=== PATIENT | male | born 1945 | race Caucasian/White ===

== ENCOUNTER → 2018-11-15 | Outpatient (CLI) | payer BC ==
[~2018-11-15] MED LIST: IOHEXOL 300 MG/ML 75 ML VIAL. IV ONE
[2018-11-15 10:39] LABS: CREATININE 1.1 mg/dL (0.7-1.3); GFR 65.8
--- NOTE | 2018-11-15 11:23 | RAD ---
PQRS Compliance Statement: One or more of the following individualized dose reduction techniques were utilized for this examination: 1. Automated exposure control 2. Adjustment of the mA and/or kV according to patient size 3. Use of iterative reconstruction technique CT chest with contrast November 15, 2018 INDICATION: Shortness of breath, cough and congestion. COMPARISON: None available TECHNIQUE: Multiple axial CT images of the chest were obtained after the intravenous demonstration of 75 cc Omnipaque 300. Coronal and sagittal reformats are provided. FINDINGS: There is a left thyroid nodule measuring 2.4 x 2.0 cm. There are no pathologically enlarged lymph nodes in the axilla, mediastinum or hilar regions. Heart size is within normal limits. There is no pericardial effusion. Thoracic aorta is normal in course and caliber. Coronary artery vascular calcifications are identified. Opacified portions of the pulmonary arteries appear patent. There is a 3 mm solid noncalcified pleura nodule in the right middle lobe (series 4, image 64). There is a 4 mm groundglass nodule in the left upper lobe (series 4, image 18). There are no pleural effusions. No pulmonary vascular congestion or pneumothorax. Lungs are clear. No suspicious hepatic lesion. Spleen is nonenlarged. Adrenal glands are normal in appearance. Pancreas is normal in appearance. No suspicious osseous abnormality. IMPRESSION: 1. No focal airspace consolidation. 2. Solid noncalcified pulmonary nodule measuring up to 3 mm in the right middle lobe. An optional one-year follow-up chest CT may be of benefit. There is a 4 mm groundglass nodule in the left upper lobe which may be infectious/inflammatory. 3. Left thyroid nodule measures 2.4 x 2.0 cm. Further evaluation with thyroid ultrasound is recommended. Electronically signed by: Elissa Perez MD (11/15/2018 11:20 AM) [id number]
== END | disposition home or self-care (01) ==
LOC: CT 09:49
PROVIDERS: ATTEND Nurse Practitioner Family
DX: E04.1 Nontoxic single thyroid nodule (principal); I25.10 Atherosclerotic heart disease of native coronary artery without angina pectoris; R91.1 Solitary pulmonary nodule
CPT/HCPCS: 36415; 71260; 82565; 84520; Q9967

== ENCOUNTER → 2018-11-25 | Outpatient (CLI) | payer BC ==
--- NOTE | 2018-11-25 15:36 | RAD ---
THYROID ULTRASOUND History: Thyroid nodule seen on CT Comparison: Chest CT November 15, 2018 Findings: Multiple sonographic images of the thyroid gland are submitted. Right lobe measured 5.1 x 2.2 x 1.2 cm. Left lobe measured 4.4 x 3.1 x 3 cm. Isthmus measured 0.3 cm in thickness. No discrete right thyroid nodularity is demonstrated. There is large, heterogeneous, solid-appearing mass of the left thyroid gland about 4.1 x 3 x 2.7 cm in size occupying most of the left thyroid lobe. There is internal vascularity on color Doppler imaging. Impression: 1. There is a large heterogeneous solid mass of the left thyroid gland. Fine-needle aspiration should be considered given size and asymmetry with the right. Electronically signed by: Arturo Morocho MD (11/25/2018 3:33 PM) [place] [id number]
== END | disposition home or self-care (01) ==
LOC: US 14:35
PROVIDERS: ATTEND Nurse Practitioner Family
DX: E04.1 Nontoxic single thyroid nodule (principal)
CPT/HCPCS: 76536

== ENCOUNTER 2019-05-26 22:04 | Emergency (ER) | payer MEDICARE, BC ==
[~2019-05-26] VITALS: Ht 180.3 cm; Wt 91.2 kg
[2019-05-26] MEDS ORDERED: DIPHTH,PERTUSS(ACELL),TET TOX 0.5 ML DISP.SYRIN. VAX IM ONE (23:45)
--- NOTE | 2019-05-26 23:57 | RAD ---
STUDY: CT head and cervical spine without contrast INDICATION: Fall. Laceration. COMPARISON: None available. TECHNIQUE: Axial CT imaging through the head and cervical spine without the use of intravenous contrast. Sagittal and coronal reformats were obtained. One or more of the following individualized dose reduction techniques were utilized for this examination: 1. Automated exposure control 2. Adjustment of the mA and/or kV according to patient size 3. Use of iterative reconstruction technique. FINDINGS: CT head: No acute intracranial hemorrhage is identified. Mild increased density along the left slightly more so than right tentorial leaflets is favored in part related to dural mineralization given similar increased density along the falx. Additionally, no large scalp hematoma or other sequela of trauma seen throughout the head. Ramon-white matter differentiation is maintained. No mass effect, midline shift or hydrocephalus. Parenchymal volume loss intracranial atherosclerotic calcifications. White matter findings as can be seen with chronic microvascular ischemic change. The paranasal sinuses and mastoid air cells are well aerated. CT cervical spine: No acute fracture seen throughout the cervical or upper thoracic spine. No traumatic malalignment. Mild reversal of cervical lordosis centered at C4. Multilevel discogenic arthrosis with disc space narrowing most notable from C3-C4 through C6-C7. Multiple levels with disc osteophyte complex formation, uncovertebral joint hypertrophy as well as facet degeneration. Bony neural foraminal encroachment from C3-C4 through C6-C7 mostly relatively moderate in severity but more severe on the right particularly at C6-C7 more so than C5-C6. Suspected mild central canal stenosis at a few levels though not well evaluated by technique. No prevertebral hematoma. Relatively mild carotid bulb atherosclerotic calcifications. Status post left hemithyroidectomy. No apical pneumothorax. IMPRESSION: CT head: 1. No acute intracranial abnormality is identified. Thin increased density along the left slightly more so than right tentorial leaflets is favored in part related to mineralization given similar increased density along the falx. No calvarial fracture or large scalp hematoma. 2. Senescent changes of the brain and white matter findings as can be seen in the setting of chronic microvascular ischemic change. CT cervical spine: 1. No acute fracture or traumatic malalignment. 2. Multifactorial degenerative changes, as above, resulting in multilevel bony neural foraminal encroachment as well as suspected mild central canal encroachment at a few levels. Electronically signed by: NARAYAN ROMAN MD (05/26/2019 11:54 PM) [id number]
[2019-05-27] MEDS ORDERED: HYDR-3165 PO (00:07)
--- NOTE | 2019-05-27 00:07 | PHYS DOC ---
Past History Past Medical History: Dementia, GERD, High Cholesterol, [place], Other Past Surgical History: Other Additional Past Surgical Histo: partial thyroidectomy, cardiac stents in LAD, Additional Smoking Information: quit in 1991 Alcohol Use: Occasionally Additional Alcohol Information: drinks glass of wine daily Drug Use: None Adult General Chief Complaint Chief Complaint: MECHANICAL FALL HPI HPI 73-year-old male presents after fall and head trauma. Patient was trying to throw a trash bag into a dumpster when he slipped off of the elevated position that it was in. He believes he fell 5 feet. He hit the back of his head on concrete. Patient denies loss of consciousness. He had bleeding that he had a laceration to the scalp. He has had no vomiting. He currently has a headache and generalized neck stiffness and pain. He denies numbness or tingling in his extremities. His not on a blood thinner. Denies any other injuries. Review of Systems Review of Systems Constitutional: Denies fever or chills [] Eyes: Denies change in visual acuity, redness, or eye pain [] HENT: Head trauma. Denies nasal congestion or sore throat [] Respiratory: Denies cough or shortness of breath [] Cardiovascular: No additional information not addressed in HPI [] GI: Denies abdominal pain, nausea, vomiting, bloody stools or diarrhea [] : Denies dysuria or hematuria [] Musculoskeletal: Neck pain[] Integument: Denies rash or skin lesions [] Neurologic: Denies headache, focal weakness or sensory changes [] Endocrine: Denies polyuria or polydipsia [] All other systems were reviewed and found to be within normal limits, except as documented in this note. Current Medications Current Medications Current Medications Medications (Trade) Dose Ordered Sig/Chasidy Start Time Stop Time Status Last Admin Dose Admin Diphtheria/ Tetanus/Acell Pertussis (Boostrix) 0.5 ml ONCE ONCE 05/26/19 23:45 05/26/19 23:46 DC 05/26/19 23:47 0.5 ML Allergies Allergies Allergies Coded Allergies Type Severity Reaction Last Updated Verified No Known Drug Allergies 11/15/18 No Physical Exam Physical Exam Constitutional: Well developed, well nourished, no acute distress, non-toxic appearance. [] HENT: Normocephalic, atraumatic, bilateral external ears normal, oropharynx moist, no oral exudates, nose normal. [] Eyes: PERRLA, EOMI, conjunctiva normal, no discharge. [] Neck: Normal range of motion, no tenderness, supple, no stridor. [] Cardiovascular:Heart rate regular rhythm, no murmur [] Lungs & Thorax: Bilateral breath sounds clear to auscultation [] Abdomen: Bowel sounds normal, soft, no tenderness, no masses, no pulsatile masses. [] Skin: Skin tear of the os simple scalp. Not currently bleeding[] Back: No tenderness, no CVA tenderness. [] Extremities: No tenderness, no cyanosis, no clubbing, ROM intact, no edema. [] Neurologic: Alert and oriented X 3, normal motor function, normal sensory function, no focal deficits noted. [] Psychologic: Affect normal, judgement normal, mood normal. [] Current Patient Data Vital Signs Vital Signs Date Time Temp Pulse Resp B/P (MAP) Pulse Ox O2 Delivery O2 Flow Rate FiO2 05/26/19 22:04 98.1 75 16 97 Room Air EKG EKG [] Radiology/Procedures Radiology/Procedures [] Impressions: Exam: Right ankle 3 views. Right foot 3 views INDICATION: Fall, pain TECHNIQUE: Frontal, lateral and oblique views of the right foot and right ankle. Comparisons: None FINDINGS: Foot: Bone mineralization is normal. No acute or healed fractures. Soft tissues are unremarkable. Joint spaces are well-maintained. Ankle: Bone mineralization is normal. No acute or healed fractures. Soft tissues are unremarkable. Joint spaces are well-maintained. IMPRESSION: 1. No acute osseous abnormality of the right foot. 2. No acute osseous abnormality of the right ankle. Electronically signed by: Kareen Lozano MD (05/26/2019 11:02 PM) [employer] DICTATED AND SIGNED BY: KAREEN LOZANO MD DATE: 05/26/19 2332 CC: KE RICE DO; CURTIS PATEL DO ~ Course & Med Decision Making Course & Med Decision Making Pertinent Labs and Imaging studies reviewed. (See chart for details) The patient's CT of the head and neck is negative for acute findings. See official report for more details. The patient's head wound appears to be superficial and well approximated at this time. It is no longer bleeding. We'll place a clean dressing over it. It does not require sutures or kimi. The patient is stable for discharge at this time. [] Dragon Disclaimer Dragon Disclaimer This electronic medical record was generated, in whole or in part, using a voice recognition dictation system. Departure Departure: Impression: Primary Impression: Fall (on) (from) unspecified stairs and steps, initial encounter Additional Impression: Skin tear Disposition: HOME, SELF-CARE Condition: STABLE Referrals: LIZZETTE COX MD (PCP) Patient Instructions: Head Injury, Adult, Lych-xn-Vncc Scripts Hydrocodone Bit/Acetaminophen (NORCO 5-325 TABLET) 1 Each Tablet 1 TAB PO PRN Q6HRS PRN for PAIN, #10 TAB 0 Refills Prov: KE RICE DO 05/27/19 Problem Qualifiers KE RICE DO May 27, 2019 00:07
[2019-05-27] MEDS ORDERED: HYDROcodone/APAP 5/325MG 1 TAB TABLET PO ONE (00:30)
[2019-05-27 00:35] VITALS: BP 158/82
== END 2019-05-27 00:45 | disposition home or self-care (01) ==
LOC: ER 22:04
DX: S01.01XA Laceration without foreign body of scalp, initial encounter (principal); R51 Headache; K21.9 Gastro-esophageal reflux disease without esophagitis; F03.90 Unspecified dementia, unspecified severity, without behavioral disturbance, psychotic disturbance, mood disturbance, and anxiety; E78.00 Pure hypercholesterolemia, unspecified; I25.2 Old myocardial infarction; Z87.891 Personal history of nicotine dependence; W10.8XXA Fall (on) (from) other stairs and steps, initial encounter; Y93.89 Activity, other specified; Y92.89 Other specified places as the place of occurrence of the external cause; Y99.8 Other external cause status
CPT/HCPCS: 70450; 72125; 90471; 90715; 99284-25

== ENCOUNTER 2020-12-12 11:37 | Emergency (ER) | payer BC, MEDICARE ==
[~2020-12-12] VITALS: Ht 180.3 cm; Wt 92.0 kg
[~2020-12-12 11:37] MED LIST changes: +HYDR-3165 PO; -IOHEXOL 300 MG/ML 75 ML VIAL. IV ONE
--- NOTE | 2020-12-12 12:03 | RAD ---
EXAM: Chest, single view. HISTORY: Syncope. COMPARISON: None. FINDINGS: A frontal view of the chest is obtained. There is no infiltrate, pleural effusion or pneumo thorax. There is nodular opacity overlying the left costophrenic angle likely due to a nipple shadow. The heart is normal in size. IMPRESSION: No acute pulmonary finding. Electronically signed by: Nicolette Patel MD (12/12/2020 12:01 PM) [id number]
[2020-12-12 12:07] LABS: BASO % 1 % (0-3); EOS # 0.3 x10^3/uL (0.0-0.7); EOS % 6 % (0-3); HEMOGLOBIN 12.3 g/dL (13.0-17.5); LYMPH # 1.4 x10^3/uL (1.0-4.8); LYMPH % 26 % (24-48); MEAN CORPUSCULAR HEMOGLOBIN 31 pg (25-35); MEAN CORPUSCULAR HGB CONC 33 g/dL (31-37); MEAN CORPUSCULAR VOLUME 94 fL (79-100); MONO # 0.7 x10^3/uL (0.0-1.1); MONO % 13 % (0-9); NEUT # 2.9 x10^3uL (1.8-7.7); NEUT % 54 % (31-73); PLATELET COUNT 217 x10^3/uL (140-400); RED BLOOD COUNT 3.92 x10^6/uL (4.30-5.70); RED CELL DISTRIBUTION WIDTH 13.5 % (11.5-14.5); WHITE BLOOD COUNT 5.4 x10^3/uL (4.0-11.0)
[2020-12-12 12:18] LABS: CREATININE 1.3 mg/dL (0.7-1.3); POTASSIUM 4.6 mmol/L (3.5-5.1)
--- NOTE | 2020-12-12 12:19 | PHYS DOC ---
Past History Past Medical History: Dementia, GERD, High Cholesterol, [place], Other Past Surgical History: Other Additional Past Surgical Histo: partial thyroidectomy, cardiac stents in LAD, Alcohol Use: Occasionally Drug Use: None Adult General Chief Complaint Chief Complaint: WEAKNESS/GENERALIZED HPI HPI Patient is a 75-year-old male with a past medical history of coronary artery disease who presents to the emergency room complaining of syncope. Patient states that he was sitting in [place] when this started. He states he felt like his legs would not hold him up and he started moving around which he felt like was helping he then woke up on the ground. He states he did not realize he pass ed out until people had surrounded him. He states that he now feels generally weak and tired. He denies any chest pain or shortness of breath. He does not have a headache. His states this is exactly what happened when he required 2 stents. Patient previously had a stents placed at [facility]. You are dehydrated on Review of Systems Review of Systems Complete ROS is negative unless otherwise documented in HPI Allergies Allergies Allergies Coded Allergies Type Severity Reaction Last Updated Verified No Known Drug Allergies 11/15/18 No Physical Exam Physical Exam General: Awake, lethargic, mild diaphoresis HEENT: Atraumatic, EOMI, PERRL, airway patent, moist oral mucosa Neck: Supple, trachea midline Respiratory: CTA bilaterally, normal effort, no wheezing/crackles CV: Bradycardia, no murmur, cap refill <2 GI: Soft, nondistended, nontender, no masses MSK: No obvious deformities Skin: Warm, dry, intact Neuro: A&O x3, speech NL, sensory and motor grossly intact, no focal deficits Psych: Normal affect, normal mood, not suicidal or homicidal Current Patient Data Vital Signs Vital Signs Date Time Temp Pulse Resp B/P (MAP) Pulse Ox O2 Delivery O2 Flow Rate FiO2 12/12/20 11:50 97.9 53 16 95/60 (72) 98 Room Air EKG EKG Sinus bradycardia, no ST elevation, normal QTC Radiology/Procedures Radiology/Procedures [] Heart Score C/O Chest Pain: N/A Risk Factors: Risk Factors: DM, Current or recent (<one month) smoker, HTN, HLP, family history of CAD, obesity. Risk Scores: Risk Factors: DM, Current or recent (<one month) smoker, HTN, HLP, family history of CAD, obesity. Course & Med Decision Making Course & Med Decision Making Pertinent Labs and Imaging studies reviewed. (See chart for details) Patient is 75-year-old male who presents to the emergency room complaining of syncope. Upon arrival to the emergency room patient is bradycardic. It is unclear at this time what his baseline is. He is on carvedilol but family is unclear as to why. Patient was placed on a monitor. EKG does not show heart block at this time. CT head, chest x-ray, CBC, BMP, troponin were ordered to evaluate for cause of syncope. Patient was given fluids. Patient continues to feel severely fatigued. Heart rate remains in the 40s. Work-up is unremarkable. 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 Dragon Disclaimer Dragon Disclaimer This electronic medical record was generated, in whole or in part, using a voice recognition dictation system. Departure Departure: Impression: Primary Impression: Syncope Additional Impression: Bradycardia Disposition: 02 SHORT TERM HOSPITAL Condition: STABLE Referrals: LIZZETTE COX MD (PCP) Problem Qualifiers FIDEL BENSON MD Dec 12, 2020 12:19
--- NOTE | 2020-12-12 12:29 | EKG ---
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
[2020-12-12] MEDS ORDERED: IV NORMAL SALINE 1,000ML 1,000 ML IV ONE (12:30)
[2020-12-12 12:31] LABS: ALBUMIN 3.5 g/dL (3.4-5.0); ALBUMIN/GLOBULIN RATIO 1.2 (1.0-1.7); TOTAL BILIRUBIN 0.4 mg/dL (0.2-1.0); TOTAL PROTEIN 6.5 g/dL (6.4-8.2)
--- NOTE | 2020-12-12 12:31 | RAD ---
RS Compliance Statement: One or more of the following individualized dose reduction techniques were utilized for this examinat ion: 1. Automated exposure control 2. Adjustment of the mA and/or kV according to patient size 3. Use of iterative reconstruction technique CT HEAD WITHOUT CONTRAST History: Reason: syncope Comparison: CT head without contrast May 26, 2019. Technique: Axial images are obtained of the head from the skull base through the vertex without IV co ntrast. Findings: No mass-effect, midline shift, extra-axial fluid collection, hemorrhage, or obvious acute infarction is identified. Basilar cisterns are patent. The ventricles and sulci are prominent, consistent with age-related cerebral atrophy. There is mild p eriventricular white matter hypoattenuation. This is a nonspecific finding but is commonly due to ch ronic small vessel ischemic disease. Bone windows demonstrate no acute calvarial abnormality. The visualized paranasal sinuses are clear. Mastoid air cells are well aerated. IMPRESSION: No acute intracranial abnormality. Electronically signed by: Danish Mckenna MD (12/12/2020 12:29 PM) [id number]
[2020-12-12 14:59] VITALS: BP 122/70
== END 2020-12-12 15:20 | disposition short-term general hospital (02) ==
LOC: ER 11:37
DX: R55 Syncope and collapse (principal); R00.1 Bradycardia, unspecified; F03.90 Unspecified dementia, unspecified severity, without behavioral disturbance, psychotic disturbance, mood disturbance, and anxiety; K21.9 Gastro-esophageal reflux disease without esophagitis; E78.00 Pure hypercholesterolemia, unspecified; I25.2 Old myocardial infarction
CPT/HCPCS: 36415; 70450; 71045; 80053; 83880; 84484; 85025; 93005; 96360; 99285; J7030